=== PATIENT | female | born 1970 | race Caucasian/White ===

== ENCOUNTER → 2016-07-14 | Outpatient (CLI) | payer OTHER ==
[~2016-07-14] MED LIST: DULCOLAX-DPS10 MG PR; MACROBID100 MG PO; MOTRIN-DPS400 MG PO; PERCOCET 5 DPS1 TAB PO; SENOKOT S1 TAB PO; URECHOLINE-DPS25 MG PO
== END | disposition home or self-care (01) ==
LOC: SSS 09:03 → PTH.S 13:01
DX: Z01.812 Encounter for preprocedural laboratory examination (principal)

== ENCOUNTER 2016-07-21 05:29 | Observation (INO) | payer OTHER ==
[~2016-07-21] VITALS: Ht 154.9 cm; Wt 70.2 kg
[2016-07-24] MEDS ORDERED: MACROBID100 MG PO (10:43)
[2016-07-24] MEDS ORDERED: MOTRIN-DPS400 MG PO (10:44)
[2016-07-24] MEDS ORDERED: PERCOCET 5 DPS1 TAB PO (10:44)
[2016-07-24] MEDS ORDERED: DULCOLAX-DPS10 MG PR (10:44)
[2016-07-24] MEDS ORDERED: SENOKOT S1 TAB PO (10:44)
[2016-07-24] MEDS ORDERED: URECHOLINE-DPS25 MG PO (10:45)
--- NOTE | 2016-08-06 12:52 | OR ---
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 OPERATION: Vaginal hysterectomy with bilateral vaginal salpingo-oophorectomy, anterior colporrhaphy, and TVTO. STAVE SAW OPERATOR: Gillian Sanchez MD DESCRIPTION OF PROCEDURE: The patient was taken to the operating room and under general anesthesia prepped and draped in the usual manner. Placed in Yellofin stirrups in the lithotomy position. Bladder was drained with a James catheter. Cervix grasped with Pham tenaculum and noted to pull down to beyond the introitus with ease. Circular incision made around the cervix at the bladder reflection entering into the posterior cul-de-sac. The uterosacral ligaments were cross clamped, incised, and ligated. The anterior dissection of the vaginal mucosa was then pushed upward to the extent that we could visualize the anterior cul-de-sac peritoneum, this was opened. A retractor was placed in the opening. The cardinal ligament areas were cross clamped, incised, and ligated followed by cross-clamping the uterine vessels with incision and ligation. At this time, the upper aspect of the broad ligament was cross clamped, incised, and ligated, and this was quite thickened and diminished and required additional clamping and incising after ligation. Then we were able to the davina the uterus with the tube utero-ovarian round ligament structures were cross clamped, incised, and ligated with stick ties. There was a bleeder in the infundibulopelvic ligament area on the left side and this required a syyljl-ln-[id number] stitch prior to cross-clamping the infundibulopelvic ligament residual and removing the tube and ovary and residual of the infundibulopelvic ligament in this fashion with incision and ligation with a stick tie. Adequate hemostasis was present. The pelvic peritoneum then was closed using a pursestring suture of 0 Vicryl incorporating the anterior cul-de-sac peritoneum going over to the left side picking up the uterosacral ligament area, picking up the peritoneum and the posterior cul-de-sac, and completing this, and tying this suture, closing the peritoneum in this fashion. Adequate hemostasis was present. The anterior colporrhaphy then was performed making a midline incision in the vaginal mucosa, mobilizing the vaginal mucosa upward to near the urethral meatus and then dissecting the pubocervical vesicle fascia from the mucosa laterally mobilizing this tissue in excellent fashion. The retropubic space was dissected. The halo device was then were used to place the mesh beneath the urethra after the retropubic space had been dissected and identified. A stab wound incision was made in the with obturator fossa area with placement of the curved halo device into the incision which was located lateral to the clitoris and going around by in the pubic rami coming out into the retropubic space and then attaching the mesh to the device and pulling it back through. A similar procedure was performed on the opposite side. A large curved clamp was then ADMIT: 07/21/2016 RM/LOC: 633 [facility] MR#: [id number] [address] [place] [id number] EST[address] MAC [address] [place] [address] Operative/Delivery Room Report SEX: F AGE: 45 : 1970 placed beneath the urethra to assist in preventing overtightening of the mesh. The tab was cut and then the mesh was removed pulling it from each side. Evaluation of the placement of the mesh beneath the urethra founded to be ideally placed in the mid urethra. We then were noted to have a significant amount of bleeding occurring and this was actually happening before of the curve halo device was placed into the retropubic area, this was occurring from the dissection in the retropubic space area, a vhrmdk-[id number]-hbgvw suture was placed to try and bring about hemostasis from the venous sinuses that were bleeding, then using a 2-0 Vicryl suture again we tried to stem the flow and this brought about most of the bleeding cessation, but we decided to put FloSeal hemostatic agent into the area and this was mixed and placed and brought about excellent hemostasis. Vaginal mucosa was excised from the vagina in the midline and the vagina was closed using a running 2-0 Vicryl suture in a lockstitch fashion down to the midline of the vaginal cuff. We then used an 0 Vicryl suture stick ties there were attached to the uterosacral ligament suturing the uterosacral ligament to the vaginal mucosa at both angles of the vagina and continued closing the vaginal cuff transversely using interrupted [id number] 0 Vicryl suture with the final closure accomplished using the pelvic peritoneal closure stitch anchoring this to the vaginal mucosa in the midline to bring about closure of the space and additional hemostasis. The vagina was packed with iodoform gauze. The incisions in the obturator fossa area were closed using Dermabond. The patient lost significant amount of blood because of the large vessels which were bleeding quite heavily in the repair of the anterior vaginal defect, and the estimate was approximately 750 mL. Her blood count will be checked this evening and tomorrow. Initially, her hemoglobin was only 10.3 preop. The patient has had a problem with being somewhat anemic. She will have the packing left in until tomorrow and I feel that she will best be monitored by keeping the catheter in for a few days after the surgery. She left the operating room in satisfactory condition. Jam Vargas MD/ melo JOB #: [id number] CC: Jam Vargas, Attending Physician FAMILY PHYSICIAN, Family Physician
--- NOTE | 2016-09-09 13:05 | DS ---
ADMIT: 07/21/2016 RM/LOC: 633 [facility] MR#: [id number] 2620 [facility] [address] [place] [id number] ESTER MAC YANNI [address] [place] [id number] General Discharge Summary SEX: F AGE: 45 : 1970 ADMISSION DATE: 07/21/2016 DISCHARGE DATE: 07/23/2016 FINAL DIAGNOSES: 1. 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 2. Stress incontinence. OPERATION: 1. Vaginal hysterectomy with bilateral vaginal salpingo-oophorectomy, anterior colporrhaphy, and TVT-O. 2. Superficial adenomyosis of the uterus with multiple 12 leiomyoma of the uterus, the largest measuring 1.7 cm, acute and chronic cervicitis. DISCHARGE SUMMARY: The patient is a 45-year-old female, admitted in the hospital for a vaginal hysterectomy and anterior colporrhaphy with TVT-O and bilateral salpingo-oophorectomy. The patient's chief compliant is a large bulging mass protruding from the vagina, involving a severe second-degree cystocele with urethral hypermotility, stress incontinence, and second-degree uterine prolapse. The patient had significant loss of vaginal support with an enlarged uterus. She underwent a vaginal hysterectomy at which time, there was noted to be some irregular enlargement of the uterus, with Pathology report revealing multiple leiomyoma of the uterus. The patient had decided to have her ovaries and tubes removed at the time of this surgery and since she did have a stress incontinence, a TVTO procedure was performed as well as the anterior colporrhaphy. The patient had a significant amount of bleeding during the procedure, especially with the anterior colporrhaphy because of the large blood vessels in this area. It was felt that she lost approximately 750 mL of blood, none of which was replaced at that time. Her preop hemoglobin was only 10.3 because of heavy bleeding prior to her hysterectomy with each period. The patient's preop hemoglobin was 10.3, her postop hemoglobin was 7.8 on the day of surgery with a hematocrit of 24.9. The following morning, her hemoglobin was 6.7 with hematocrit of 22.5. On 07/23, her hemoglobin after receiving a unit blood was 30.8, hematocrit of 27.7. The patient felt much better after the unit of blood was given. She was ambulating well, and was discharged to home to return to the clinic for followup care. Jam Vargas MD/ melo JOB #: [id number] CC: Jam Vargas MD, Attending Physician FAMILY PHYSICIAN, Family Physician
== END 2016-07-23 11:30 | disposition home or self-care (01) ==
LOC: WOR 05:29 → 6PED 09:27
PROVIDERS: ADMIT Obstetrics & Gynecology
PROC: 0UTC7ZZ Resection of Cervix, Via Natural or Artificial Opening (ICD-10-PCS; principal; 2016-07-21)
PROC: 0JQC0ZZ Repair Pelvic Region Subcutaneous Tissue and Fascia, Open Approach (ICD-10-PCS; principal; 2016-07-21)
PROC: 0TSD0ZZ Reposition Urethra, Open Approach (ICD-10-PCS; 2016-07-21)
PROC: 0UT77ZZ Resection of Bilateral Fallopian Tubes, Via Natural or Artificial Opening (ICD-10-PCS; 2016-07-21)
PROC: 0UT27ZZ Resection of Bilateral Ovaries, Via Natural or Artificial Opening (ICD-10-PCS; 2016-07-21)
PROC: 0UT97ZZ Resection of Uterus, Via Natural or Artificial Opening (ICD-10-PCS; 2016-07-21)
DX: D25.9 Leiomyoma of uterus, unspecified (principal); N81.2 Incomplete uterovaginal prolapse; N72 Inflammatory disease of cervix uteri; N36.41 Hypermobility of urethra; N39.3 Stress incontinence (female) (male); D50.8 Other iron deficiency anemias; N39.0 Urinary tract infection, site not specified; Z98.890 Other specified postprocedural states